=== PATIENT | female | born 1965 | race Caucasian/White ===

== ENCOUNTER 2019-02-11 23:55 | Emergency (ER) | payer MEDICAID ==
[~2019-02-11] VITALS: Ht 172.7 cm; Wt 77.2 kg
[~2019-02-11 23:55] MED LIST: ADAL20KI; CHOL100010 PO; HYDR-3965 PO; LACT10SO PO; LEVO25TA50 PO; OXYC40TA39 PO; POLY17PO12 PO; SULF-117 PO; TRAM50TA2 PO; VAL5T PO
--- NOTE | 2019-02-12 00:11 | NUR ---
PATIENT CONTINUES TO WAIL, SOB, CRY, EVEN THOUGH SHE IS NOT IN ACUTE PHYSICAL DISTRESS.UNCONSOLABLE.
[2019-02-12] MEDS ORDERED: haloperidol lactate 5mg/ml inj IM ONE (00:15)
[2019-02-12] MEDS ORDERED: diphenhydrAMINE 50 mg/ml inj IM ONE (00:15)
--- NOTE | 2019-02-12 00:24 | NUR ---
PT DENIES S/H/I AT THIS TIME. DISTURBED THOUGHT PROCESSES NOTED PT IS FIXATED, SAYING "I HOPE I DON'T . I'M DYING." PT CAN BE REDIRECTED WITH MILD EFFORT, BUT WITHIN A FEW MINUTES WILL ONCE AGAIN FOCUS ON . PT REPORTS A BIPOLAR DX "WHEN I WAS YOUNG." PT RECALLS BEING ON LITHIUM WITH POSITIVE EFFECT, BUT SAYS, "I WAS CURED. I HAVEN'T TAKEN IT FOR YEARS. I'M CURED." PT REPORTS FAMILIAL SUPPORT FROM HER AND CHILDREN.
[2019-02-12 00:41] LABS: BASOPHILS % (AUTO) 0.5 % (0-1); EOSINOPHILS % (AUTO) 0.2 % (0-6); HEMATOCRIT 37.7 % (35.0-45.0); HEMOGLOBIN 12.4 g/dl (12.0-16.0); LYMPHOCYTES # (AUTO) 0.8 X10'3 (1.1-4.8); LYMPHOCYTES % (AUTO) 12.8 % (21-51); MEAN CORPUSCULAR HEMOGLOBIN 28.1 PG (27.0-31.0); MEAN CORPUSCULAR HGB CONC 32.9 g/dL (33.0-36.5); MEAN CORPUSCULAR VOLUME 85.6 FL (78-98); MEAN PLATELET VOLUME 7.7 FL (7.4-10.4); MONOCYTES # (AUTO) 0.1 X10'3 (0-0.9); MONOCYTES % (AUTO) 1.6 % (2-12); NEUTROPHILS # (AUTO) 5.6 X10'3 (1.8-7.7); NEUTROPHILS % (AUTO) 84.9 % (42-75); PLATELET COUNT 452 X10'3 (140-440); RED CELL DISTRIBUTION WIDTH 15.8 % (11.5-14.5); WHITE BLOOD COUNT 6.6 X10'3 (4.5-11.0)
[2019-02-12] MEDS ORDERED: ADAL40PE IM (00:56)
[2019-02-12] MEDS ORDERED: POLY510P31 PO (00:56)
[2019-02-12] MEDS ORDERED: PROP10TA10 PO (00:56)
[2019-02-12] MEDS ORDERED: GABA-532 PO (00:56)
[2019-02-12] MEDS ORDERED: CARI3CAP PO (00:56)
[2019-02-12] MEDS ORDERED: HYDR-3972 PO (00:56)
[2019-02-12] MEDS ORDERED: ARIP5TAB60 PO (00:56)
[2019-02-12] MEDS ORDERED: ZOLP10TA5 PO (00:56)
[2019-02-12] MEDS ORDERED: PRAZ1CAP5 PO (00:56)
[2019-02-12] MEDS ORDERED: DOCU-267 PO (00:56)
[2019-02-12] MEDS ORDERED: LEVO125T8 PO (00:56)
[2019-02-12] MEDS ORDERED: METH750T3 PO (00:56)
[2019-02-12 01:01] LABS: ALANINE AMINOTRANSFERASE 17 U/L (12-78); ALBUMIN 3.2 G/DL (3.4-5.0); ALBUMIN/GLOBULIN RATIO 0.6 (1.1-1.5); ALKALINE PHOSPHATASE 95 IU/L (46-116); ANION GAP 13 (8-16); ASPARTATE AMINO TRANSFERASE 17 U/L (10-37); BILIRUBIN,TOTAL 0.3 MG/DL (0.1-1.0); BLOOD UREA NITROGEN 11 MG/DL (7-18); BUN/CREATININE RATIO 13.9 (6.6-38.0); CHLORIDE 108 MMOL/L (99-107); CREATININE 0.79 MG/DL (0.40-0.90); GLUCOSE 124 MG/DL (70-104); SODIUM 145 MMOL/L (135-145); TOTAL CARBON DIOXIDE 24.2 MMOL/L (24-32); TOTAL PROTEIN 8.5 G/DL (6.4-8.2); eGFR 76 ML/MIN
[2019-02-12 01:03] LABS: ETHANOL < 0.010 GM/DL (0.0-0.010)
[2019-02-12 01:30] LABS: CLARITY,URINE CLEAR (Clear); COLOR,URINE YELLOW (Yellow); GLUCOSE, URINE NEGATIVE (Neg); KETONES,URINE NEGATIVE (Neg); LEUKOCYTE ESTERASE ,URINE NEGATIVE (Neg); NITRITES, URINE NEGATIVE (Neg); OCCULT BLOOD,URINE TRACE-INTACT (Neg); PH,URINE 7.5 (4.8-8.0); PROTEIN,URINE NEGATIVE (Neg); UROBILINOGEN,URINE 0.2 E.U/dL (0.2-1.0)
[2019-02-12] MEDS ORDERED: LORazepam 2 mg/ml vial IM ONE (01:30)
[2019-02-12 01:34] LABS: URINE AMPHETAMINE SCREEN NEGATIVE (Neg); URINE BARBITUATE SCREEN NEGATIVE (Neg); URINE BENZODIAZEPINES SCREEN NEGATIVE (Neg); URINE CANNABINOID SCREEN POSITIVE (Neg); URINE COCAINE SCREEN NEGATIVE (Neg); URINE METHADONE SCREEN NEGATIVE (Neg); URINE OPIATE SCREEN POSITIVE (Neg); URINE PHENCYCLIDINE SCREEN NEGATIVE (Neg)
[2019-02-12] MEDS ORDERED: LORazepam 2 mg/ml vial ONE (01:36)
[2019-02-12 01:39] LABS: UA COLLECTION TYPE CLN CATCH MIDSTREAM
[2019-02-12 01:40] LABS: BACTERIA,URINE FEW /HPF (Neg); RBC,URINE 0-2 /HPF (0-2); SQUAMOUS EPITHELIAL CELL,UR MODERATE /LPF (FEW); WBC,URINE 0-4 /HPF (0-4)
--- NOTE | 2019-02-12 02:25 | NUR ---
The patient ambulated to bed 23 from the ER, accompanied by LUIS Bender and TRINH Pineda. She went right to her bed and started moaning. When told it was the middle of the night, she turned over and went to sleep.
--- NOTE | 2019-02-12 03:10 | NUR ---
The patient is up to use bathroom. She walks slowly and appears to be in pain.
--- NOTE | 2019-02-12 04:13 | NUR ---
The patient has again ambulated to the bathroom.
--- NOTE | 2019-02-12 05:07 | NUR ---
The patient is lightly sleeping with an occasional moan or sob. Resp unlabored. No s/s of distress.
[2019-02-12 06:14] VITALS: BP 120/66
--- NOTE | 2019-02-12 06:29 | NUR ---
Patient laying on left side. Patient was moaning and up to the BR, but now she is quiet. Continue to monitor.
[2019-02-12] MEDS ORDERED: polyethylene glycol 3350 17gm powd pack PO SCH (08:00)
[2019-02-12] MEDS ORDERED: aripiprazole 5mg tablet PO SCH (08:00)
[2019-02-12] MEDS ORDERED: gabapentin 300mg capsule PO SCH (08:00)
[2019-02-12] MEDS ORDERED: propranolol 10mg tablet PO SCH (08:00)
[2019-02-12] MEDS ORDERED: docusate sod 100mg capsule PO SCH (08:00)
[2019-02-12] MEDS ORDERED: levoTHYROXINE 125mcg tablet PO SCH (08:00)
[2019-02-12] MEDS ORDERED: CARIPRAZINE HYDROCHLORIDE PO SCH (08:00)
--- NOTE | 2019-02-12 08:15 | NUR ---
Patient sitting up and eating. No distress observed. Continue to monitor.
--- NOTE | 2019-02-12 10:05 | NUR ---
Patient's visiting with patient. No distress observed. Continue to monitor.
--- NOTE | 2019-02-12 10:30 | NUR ---
MANNY Dougherty, evaluating patient. Continue to monitor.
--- NOTE | 2019-02-12 10:51 | NUR ---
Breaking Primary RN, pt is in bed resting on her Right side, eyes closed, regular, unlabored breathing, no s/s of distress observed
[2019-02-12] MEDS ORDERED: prazosin 1mg capsule PO SCH (21:00)
== END 2019-02-12 12:02 | disposition home or self-care (01) ==
LOC: ER 23:55
DX: Z73.6 Limitation of activities due to disability (principal); G89.29 Other chronic pain; F41.9 Anxiety disorder, unspecified; F31.9 Bipolar disorder, unspecified; M06.9 Rheumatoid arthritis, unspecified; F12.90 Cannabis use, unspecified, uncomplicated; Z98.51 Tubal ligation status; Z98.890 Other specified postprocedural states; Z88.8 Allergy status to other drugs, medicaments and biological substances; Z79.899 Other long term (current) drug therapy
CPT/HCPCS: 36415; 80053; 80305; 80320; 81001; 84443; 85025; 96372; 99284; J1200; J1630; J2060

== ENCOUNTER 2019-02-20 11:58 | Emergency (ER) | payer MEDICAID ==
[~2019-02-20] VITALS: Ht 172.7 cm; Wt 77.2 kg
[~2019-02-20 11:58] MED LIST changes: -ADAL20KI; +ADAL40PE IM; +ARIP5TAB60 PO; +CARI3CAP PO; -CHOL100010 PO; +DOCU-267 PO; +GABA-532 PO; -HYDR-3965 PO; +HYDR-3972 PO; -LACT10SO PO; +LEVO125T8 PO; -LEVO25TA50 PO; +METH750T3 PO; -OXYC40TA39 PO; -POLY17PO12 PO; +POLY510P31 PO; +PRAZ1CAP5 PO; +PROP10TA10 PO; -SULF-117 PO; -TRAM50TA2 PO; -VAL5T PO; +ZOLP10TA5 PO
[2019-02-20 12:10] VITALS: BP 130/86
[2019-02-20] MEDS ORDERED: HYDR-3686 PO (12:25)
[2019-02-20 12:38] LABS: BASOPHILS % (AUTO) 0.4 % (0-1); EOSINOPHILS # (AUTO) 0.1 X10'3 (0-0.9); HEMATOCRIT 35.9 % (35.0-45.0); HEMOGLOBIN 11.7 g/dl (12.0-16.0); LYMPHOCYTES # (AUTO) 1.3 X10'3 (1.1-4.8); LYMPHOCYTES % (AUTO) 19.2 % (21-51); MEAN CORPUSCULAR HEMOGLOBIN 28.1 PG (27.0-31.0); MEAN CORPUSCULAR HGB CONC 32.5 g/dL (33.0-36.5); MEAN CORPUSCULAR VOLUME 86.3 FL (78-98); MEAN PLATELET VOLUME 7.8 FL (7.4-10.4); MONOCYTES # (AUTO) 0.6 X10'3 (0-0.9); NEUTROPHILS # (AUTO) 4.9 X10'3 (1.8-7.7); NEUTROPHILS % (AUTO) 69.4 % (42-75); PLATELET COUNT 311 X10'3 (140-440); RED BLOOD COUNT 4.15 X10'6 (4.20-5.60); RED CELL DISTRIBUTION WIDTH 15.5 % (11.5-14.5)
[2019-02-20] MEDS ORDERED: LORazepam 1 MG tablet PO ONE (12:50)
[2019-02-20] MEDS ORDERED: ibuprofen tablet 400 MG TABLET PO ONE (12:50)
[2019-02-20 12:56] LABS: ALANINE AMINOTRANSFERASE 15 U/L (12-78); ALBUMIN 3.3 G/DL (3.4-5.0); ALBUMIN/GLOBULIN RATIO 0.7 (1.1-1.5); ALKALINE PHOSPHATASE 101 IU/L (46-116); ANION GAP 8 (8-16); ASPARTATE AMINO TRANSFERASE 13 U/L (10-37); BILIRUBIN,TOTAL 0.4 MG/DL (0.1-1.0); BLOOD UREA NITROGEN 12 MG/DL (7-18); BUN/CREATININE RATIO 15.4 (6.6-38.0); CALCIUM 9.3 MG/DL (8.5-10.1); CHLORIDE 107 MMOL/L (99-107); CREATININE 0.78 MG/DL (0.40-0.90); GLUCOSE 98 MG/DL (70-104); POTASSIUM 3.9 MMOL/L (3.5-5.1); SODIUM 142 MMOL/L (135-145); TOTAL CARBON DIOXIDE 27.1 MMOL/L (24-32); TOTAL PROTEIN 8.2 G/DL (6.4-8.2); eGFR 77 ML/MIN
[2019-02-20 13:00] LABS: ACETAMINOPHEN < 2.0 UG/ML (10-30); ETHANOL < 0.010 GM/DL (0.0-0.010)
== END 2019-02-20 14:01 | disposition home or self-care (01) ==
LOC: ER 11:59
DX: F41.9 Anxiety disorder, unspecified (principal); G89.29 Other chronic pain; M19.90 Unspecified osteoarthritis, unspecified site; F31.9 Bipolar disorder, unspecified; F12.90 Cannabis use, unspecified, uncomplicated; Z98.890 Other specified postprocedural states; Z98.51 Tubal ligation status; Z88.8 Allergy status to other drugs, medicaments and biological substances; Z79.899 Other long term (current) drug therapy
CPT/HCPCS: 36415; 80053; 80320; 80329; 84443; 85025; 99284

== ENCOUNTER 2019-03-06 23:15 | Emergency (ER) | payer MEDICAID ==
[~2019-03-06] VITALS: Ht 172.7 cm; Wt 72.7 kg
[~2019-03-06 23:15] MED LIST changes: +HYDR-3686 PO; -PROP10TA10 PO
[2019-03-06] MEDS ORDERED: ibuprofen tablet 400 MG TABLET PO ONE (23:50)
[2019-03-06] MEDS ORDERED: morphine 4 MG/ML inj SYRINge IM ONE (23:50)
[2019-03-06] MEDS ORDERED: LORazepam 2 mg/ml vial IM ONE (23:50)
[2019-03-07 00:20] LABS: EOSINOPHILS # (AUTO) 0.2 X10'3 (0-0.9)
[2019-03-07 00:28] LABS: BASOPHILS % (AUTO) 0.3 % (0-1); EOSINOPHILS % (AUTO) 2.4 % (0-6); HEMATOCRIT 33.7 % (35.0-45.0); HEMOGLOBIN 11.2 g/dl (12.0-16.0); LYMPHOCYTES # (AUTO) 1.5 X10'3 (1.1-4.8); LYMPHOCYTES % (AUTO) 16.3 % (21-51); MEAN CORPUSCULAR HGB CONC 33.2 g/dL (33.0-36.5); MEAN CORPUSCULAR VOLUME 84.5 FL (78-98); MEAN PLATELET VOLUME 7.5 FL (7.4-10.4); MONOCYTES # (AUTO) 0.8 X10'3 (0-0.9); MONOCYTES % (AUTO) 8.4 % (2-12); NEUTROPHILS # (AUTO) 6.5 X10'3 (1.8-7.7); NEUTROPHILS % (AUTO) 72.6 % (42-75); PLATELET COUNT 354 X10'3 (140-440); RED BLOOD COUNT 3.99 X10'6 (4.20-5.60); RED CELL DISTRIBUTION WIDTH 15.8 % (11.5-14.5)
[2019-03-07 00:51] LABS: ALANINE AMINOTRANSFERASE 12 U/L (12-78); ALBUMIN 3.1 G/DL (3.4-5.0); ALBUMIN/GLOBULIN RATIO 0.7 (1.1-1.5); ALKALINE PHOSPHATASE 92 IU/L (46-116); ANION GAP 11 (8-16); ASPARTATE AMINO TRANSFERASE 13 U/L (10-37); BILIRUBIN,TOTAL 0.2 MG/DL (0.1-1.0); BLOOD UREA NITROGEN 10 MG/DL (7-18); BUN/CREATININE RATIO 11.9 (6.6-38.0); CALCIUM 9.3 MG/DL (8.5-10.1); CHLORIDE 107 MMOL/L (99-107); CREATININE 0.84 MG/DL (0.40-0.90); GLUCOSE 123 MG/DL (70-104); POTASSIUM 3.4 MMOL/L (3.5-5.1); SODIUM 144 MMOL/L (135-145); TOTAL CARBON DIOXIDE 26.4 MMOL/L (24-32); TOTAL PROTEIN 7.8 G/DL (6.4-8.2); eGFR 71 ML/MIN
--- NOTE | 2019-03-07 01:00 | NUR ---
vasc u/s here to see pt.
[2019-03-07 02:13] VITALS: BP 121/77
== END 2019-03-07 02:00 | disposition home or self-care (01) ==
LOC: ER 23:15
DX: F41.9 Anxiety disorder, unspecified (principal); M25.562 Pain in left knee; M25.561 Pain in right knee; M19.90 Unspecified osteoarthritis, unspecified site; G89.29 Other chronic pain; F31.9 Bipolar disorder, unspecified; F17.200 Nicotine dependence, unspecified, uncomplicated; F12.90 Cannabis use, unspecified, uncomplicated; Z98.890 Other specified postprocedural states; Z98.51 Tubal ligation status; Z88.8 Allergy status to other drugs, medicaments and biological substances; Z79.899 Other long term (current) drug therapy
CPT/HCPCS: 36415; 80053; 84145; 85025; 85651; 93971; 96372; 99284; J2060; J2270